=== PATIENT | male | born 1990 | race Caucasian/White ===

== ENCOUNTER 2018-01-04 20:58 | Emergency (ER) | payer OTHER ==
[2018-01-04 21:19] VITALS: BP 132/83
--- NOTE | 2018-01-04 21:34 | UC ---
Hand/Wrist HPI - HPI Summary HPI Summary: 27 yo WM p/w right wrist and forearm pain x2-3 days after working with a sledgehammer at work, hurt his wrist but "kept on working" . Denies trauma or numbness or tingling - History Of Current Complaint Chief Complaint: UCUpperExtremity Stated Complaint: WC-RT WRIST/ARM INJURY Time Seen by Provider: 01/04/18 21:20 Hx Obtained From: Patient Onset/Duration: Lasting Days Severity Initially: Moderate Severity Currently: Moderate Pain Intensity: 0 Character Of Pain: Sharp Aggravating Factor(s): Movement, Flexion, Extension, Abduction, Adduction Alleviating Factor(s): Nothing Associated Signs And Symptoms: Positive: Negative. Negative: Numbness/Tingling - Allergies/Home Medications Allergies/Adverse Reactions: Allergies Allergy/AdvReac Type Severity Reaction Status Date / Time ibuprofen AdvReac epistasis Verified 01/04/18 21:09 Home Medications: Home Medications Ibuprofen TAB* [Advil TAB*] 800 mg PO Q6H PRN 01/04/18 [History Confirmed ] Multivitamin [Multivitamins] 1 cap PO DAILY 01/04/18 [History Confirmed 01/04/18 ] PMH/Surg Hx/FS Hx/Imm Hx Previously Healthy: Yes - Surgical History Surgical History: None - Social History Alcohol Use: Weekly Alcohol Amount: 3 beers Substance Use Type: None Smoking Status (MU): Former Smoker Type: Smokeless Tobacco Amount Used/How Often: daily usage Length of Time of Smoking/Using Tobacco: 7 yrs Have You Smoked in the Last Year: No When Did the Patient Quit Smoking/Using Tobacco: 2 yrs ago - Immunization History Most Recent Influenza Vaccination: no Review of Systems Constitutional: Negative Skin: Negative Eyes: Negative ENT: Negative Respiratory: Negative Cardiovascular: Negative Gastrointestinal: Negative Genitourinary: Negative Motor: Decreased ROM - right wrist, Weakness Neurovascular: Negative Musculoskeletal: Negative Neurological: Negative Psychological: Negative All Other Systems Reviewed And Are Negative: Yes Physical Exam Triage Information Reviewed: Yes Vital Signs: Initial Vital Signs Temp 36.6 C 01/04/18 21:12 Pulse 80 01/04/18 21:12 Resp 16 01/04/18 21:12 BP 132/83 01/04/18 21:12 Pulse Ox 99 01/04/18 21:12 Vital Signs Reviewed: Yes Eye Exam: Normal ENT Exam: Normal ENT: Positive: Normal ENT inspection Neck: Positive: Supple Respiratory Exam: Normal Respiratory: Positive: Lungs clear Musculoskeletal: Positive: Strength Limited @, ROM Limited @ - right wrist- TTP on right dorsal thenar side of the wrist radiating to distal radius, NVI Neurological Exam: Normal Neurological: Positive: Alert Hand/Wrist Course/Dx - Course Course Of Treatment: XR of right wrist and forarm neg for fx- pain likely due to severe strain, will apply thumb spica splint, RICE, work note - Differential Dx/Diagnosis Differential Diagnosis/HQI/PQRI: Sprain, Strain, Tenosynovitis Provider Diagnoses: right wrist strain Discharge - Sign-Out/Discharge Documenting (check all that apply): Discharge/Admit/Transfer - Discharge Plan Condition: Stable Disposition: HOME Prescriptions: Naproxen [Naproxen 500 mg tab] 500 mg PO BID 10 Days #20 tablet Patient Education Materials: Wrist Injury (ED) Forms: *Work Release Referrals: No Primary Care Phys,NOPCP [Primary Care Provider] - Additional Instructions: take medication as directed, thumb spica splint as directed, rest, ICE, elevate - Billing Disposition and Condition Condition: STABLE Disposition: HOME
--- NOTE | 2018-01-04 21:49 | RAD ---
INDICATION: Radial aspect RIGHT wrist pain following repetitive type injury on Monday. COMPARISON: None. TECHNIQUE: AP, lateral, and oblique views RIGHT wrist. AP and lateral views RIGHT forearm. REPORT AND IMPRESSION: Normal articular alignment at the forearm and wrist. Preserved joint spaces. Negative for forearm or wrist cortical disruption or suspicious trabecular irregularity to suggest fracture. Mild distal forearm and wrist soft tissue swelling.
== END 2018-01-04 22:00 | disposition home or self-care (01) ==
LOC: UCCORT 20:58
DX: S66.911A Strain of unspecified muscle, fascia and tendon at wrist and hand level, right hand, initial encounter (principal); X58.XXXA Exposure to other specified factors, initial encounter; Y93.89 Activity, other specified; Y92.9 Unspecified place or not applicable; Z87.891 Personal history of nicotine dependence; Z88.6 Allergy status to analgesic agent
CPT/HCPCS: 99203; G0463

== ENCOUNTER 2018-01-08 21:09 | Emergency (ER) | payer SELFPAY ==
[2018-01-08 21:36] VITALS: BP 147/98
--- NOTE | 2018-01-08 21:59 | UC ---
Hand/Wrist HPI - HPI Summary HPI Summary: PT IS C/O PAIN TO R WRIST FOR 6 DAYS. HE WAS SEEN HERE 4 DAYS AGO AND PRESCRIBED AN NSAID, SPLINT AND OFF WORK. HE NEVER TOOK THE NSAID AND NOTES SOME ONGOING SORENESS. ALSO NOTES THAT SITE SOMETIMES CLICKS. PAIN BEGAN WITH SLEDGE HAMMER USE AND WAS GRADUAL. XRAY ON LAST VISIT=NO FX. NO NUMB/TINGLING TO THE HAND - History Of Current Complaint Hx Obtained From: Patient Onset/Duration: Gradual Onset Pain Intensity: 0 Aggravating Factor(s): Movement Alleviating Factor(s): Rest Associated Signs And Symptoms: Positive: Swelling - IMPROVING. Negative: Redness, Bruising, Fever, Weakness, Numbness/Tingling <Deana Akins - Last Filed: 01/08/18 22:02> <Sruthi Chin - Last Filed: 01/08/18 22:38> - History Of Current Complaint Chief Complaint: UCUpperExtremity Stated Complaint: RECHECK RT WRIST INJURY - W/C Time Seen by Provider: 01/08/18 21:30 - Allergies/Home Medications Allergies/Adverse Reactions: Allergies Allergy/AdvReac Type Severity Reaction Status Date / Time ibuprofen AdvReac epistasis Verified 01/04/18 21:09 PMH/Surg Hx/FS Hx/Imm Hx Previously Healthy: Yes - Surgical History Surgical History: None - Family History Known Family History: Positive: None - Social History Occupation: Employed Full-time Alcohol Use: Weekly Alcohol Amount: 3 beers Substance Use Type: None Smoking Status (MU): Former Smoker Type: Smokeless Tobacco Amount Used/How Often: daily usage Length of Time of Smoking/Using Tobacco: 7 yrs Have You Smoked in the Last Year: No When Did the Patient Quit Smoking/Using Tobacco: 2 yrs ago - Immunization History Most Recent Influenza Vaccination: no Vaccination Up to Date: Yes <Deana Akins - Last Filed: 01/08/18 22:02> Review of Systems Constitutional: Negative Skin: Negative Eyes: Negative ENT: Negative Respiratory: Negative Cardiovascular: Negative Gastrointestinal: Negative Genitourinary: Negative Motor: Negative Neurovascular: Negative Musculoskeletal: Other: - r WRIST PAIN/SWELLING Neurological: Negative Psychological: Negative Is Patient Immunocompromised?: No All Other Systems Reviewed And Are Negative: Yes <Deana Akins - Last Filed: 01/08/18 22:02> Physical Exam Triage Information Reviewed: Yes Appearance: Well-Appearing Vital Signs: Initial Vital Signs Temp 97.6 F 01/08/18 21:31 Pulse 63 01/08/18 21:31 Resp 16 01/08/18 21:31 BP 147/98 01/08/18 21:31 Pulse Ox 100 01/08/18 21:31 Vital Signs Reviewed: Yes Eyes: Positive: Conjunctiva Clear ENT: Positive: Normal ENT inspection Neck: Positive: Supple, Nontender, No Lymphadenopathy Respiratory: Positive: Lungs clear, Normal breath sounds Cardiovascular: Positive: RRR, No Murmur Abdomen Description: Positive: Nontender, No Organomegaly, Soft Bowel Sounds: Positive: Present Musculoskeletal: Positive: Other: - rue: shoulder and elbow are non tender. wrist has mild swelling and tenderness over radial side with + Finklestein test. Hand non tender with full s/v/m function. No snuff box tenderness. Neurological: Positive: Alert Psychological: Positive: Age Appropriate Behavior Skin Exam: Normal <Deana Akins - Last Filed: 01/08/18 22:02> Vital Signs: Initial Vital Signs Temp 97.6 F 01/08/18 21:31 Pulse 63 01/08/18 21:31 Resp 16 01/08/18 21:31 BP 147/98 01/08/18 21:31 Pulse Ox 100 01/08/18 21:31 <Sruthi Chin - Last Filed: 01/08/18 22:38> Hand/Wrist Course/Dx - Course Course Of Treatment: no fx on xray prior visit. pt did not take the nsaid as prescribed on prior visit. no nsaid allergy, had nose bleed in past. no hx briusing or bleeding easliy thus will trial otc nsaid. pt agrees to d/c if any issue. no concern for infection. exam c/w de Quervain tenosynovitis. will resume splinrt and refer to orthopedics. - Differential Dx/Diagnosis Provider Diagnoses: R De Quervain tenosynovitis. <Deana Akins - Last Filed: 01/08/18 22:02> Discharge - Sign-Out/Discharge Documenting (check all that apply): Discharge/Admit/Transfer - Billing Disposition and Condition Condition: STABLE Disposition: HOME <Deana Akins - Last Filed: 01/08/18 22:02> - Billing Disposition and Condition Condition: STABLE Disposition: HOME <Sruthi Chin - Last Filed: 01/08/18 22:38> - Discharge Plan Condition: Stable Disposition: HOME Patient Education Materials: De Quervain Disease (ED) Forms: *Work Release Referrals: Roly Virgen MD [Medical Doctor] - As Soon As Possible Additional Instructions: CONTINUE THE SPLINT. START ALEVE 2 TABLETS(440MG) IN AM AND BEDTIME Attestation Statement Provider Attestation: I was available for consult. This patient was seen by the [facility]. The patient was not presented to, seen by, or examined by me. -Xiomara <Sruthi Chin - Last Filed: 01/08/18 22:38>
== END 2018-01-08 22:08 | disposition home or self-care (01) ==
LOC: UCCORT 21:09
DX: M65.4 Radial styloid tenosynovitis [de Quervain] (principal); Z87.891 Personal history of nicotine dependence
CPT/HCPCS: 99212; G0463

== ENCOUNTER 2018-04-12 13:34 | Emergency (ER) | payer OTHER ==
[2018-04-12 13:54] VITALS: BP 145/94
[2018-04-12] MEDS ORDERED: Albuterol 2.5 MG/3 ML NEB.SOL* (0.083%) INH ONE (13:57)
--- NOTE | 2018-04-12 14:06 | UC ---
Respiratory Complaint HPI - HPI Summary HPI Summary: cough x 4 days cough is productive , yellow sputum + nasal congestion , sore throat, no fever, + chills has been wheezing , chest feels tight, - History of Current Complaint Chief Complaint: UCRespiratory Stated Complaint: UPPER RESPIRATORY COMPLAINT Time Seen by Provider: 04/12/18 13:45 Hx Obtained From: Patient Onset/Duration: Gradual Onset, Lasting Days - 4, Still Present Timing: Constant Severity Initially: Moderate Severity Currently: Moderate Pain Intensity: 5 Character: Cough: Productive Aggravating Factors: Exertion, Deep Breaths Alleviating Factors: Nothing Associated Signs And Symptoms: Positive: Dyspnea, Chills, Wheezing, URI, Nasal Congestion. Negative: Fever, Dizziness, Calf Pain, Calf Swelling - Allergies/Home Medications Allergies/Adverse Reactions: Allergies Allergy/AdvReac Type Severity Reaction Status Date / Time ibuprofen AdvReac epistasis Verified 04/12/18 13:43 Home Medications: Home Medications GuaiFENesin DM* [Robitussin DM*] 10 ml PO Q6H PRN 04/12/18 [History Confirmed ] [place]-3 Fatty Acids/Fish Oil [Fish Oil 1,000 mg Capsule] 1 each PO DAILY [History Confirmed 04/12/18] Oxymetazoline 0.05% NASAL SPR* [Afrin 0.05% NASAL SPRAY*] 1 spray NASAL Q12H PRN 04/12/18 [History Confirmed 04/12/18] PMH/Surg Hx/FS Hx/Imm Hx Respiratory History: Asthma - Surgical History Surgical History: None - Family History Known Family History: Positive: None Negative: Diabetes - Social History Alcohol Use: Weekly Alcohol Amount: 3 beers Substance Use Type: None Smoking Status (MU): Former Smoker Type: Smokeless Tobacco Amount Used/How Often: daily usage Length of Time of Smoking/Using Tobacco: 7 yrs Have You Smoked in the Last Year: No When Did the Patient Quit Smoking/Using Tobacco: 2 yrs ago - Immunization History Most Recent Influenza Vaccination: no Vaccination Up to Date: Yes Review of Systems Constitutional: Chills, Fatigue Skin: Negative Eyes: Negative ENT: Sore Throat, Nasal Discharge Respiratory: Shortness Of Breath, Cough Cardiovascular: Negative Is Patient Immunocompromised?: No All Other Systems Reviewed And Are Negative: Yes Physical Exam Triage Information Reviewed: Yes Appearance: Well-Appearing, No Pain Distress, Well-Nourished Vital Signs: Initial Vital Signs Temp 97.5 F 04/12/18 13:46 Pulse 118 04/12/18 13:46 Resp 24 04/12/18 13:46 BP 145/94 04/12/18 13:46 Pulse Ox 94 04/12/18 13:46 Vital Signs Reviewed: Yes Eye Exam: Normal Eyes: Positive: Conjunctiva Clear ENT: Positive: Normal ENT inspection, Hearing grossly normal, Pharynx normal, Nasal congestion, Nasal drainage, TMs normal Neck: Positive: Supple, Nontender, No Lymphadenopathy Respiratory: Positive: Chest non-tender, Wheezing - diffuse Cardiovascular: Positive: Tachycardia Abdominal Exam: Normal Skin Exam: Normal UC Diagnostic Evaluation - Laboratory O2 Sat by Pulse Oximetry: 94 Diagnostic Studies Comment: chest xray : no acute disease Respiratory Course/Dx - Differential Dx/Diagnosis Provider Diagnoses: Bronchitis Discharge - Sign-Out/Discharge Documenting (check all that apply): Patient Departure - Discharge Plan Condition: Stable Disposition: HOME Prescriptions: Albuterol 2.5MG/3ML (0.083%)* [Ventolin 2.5 MG/3 ML NEB.LOVELY*] 2.5 mg INH Q6H PRN #1 box PRN Reason: Wheezing Albuterol HFA INHALER* [Ventolin HFA Inhaler*] 2 puff INH Q4H PRN #1 mdi PRN Reason: Wheezing Azithromycin TAB* [Zithromax TAB (Z-RAMAKRISHNA) 250 mg #6 tabs] 2 tab PO .TODAY, THEN 1 DAILY #1 ramakrishna predniSONE [Prednisone 20 MG TAB] 20 mg PO BID #10 tablet Patient Education Materials: Acute Bronchitis (ED) Referrals: No Primary Care Phys,NOPCP [Primary Care Provider] - 5 Days - Billing Disposition and Condition Condition: STABLE Disposition: Home
--- NOTE | 2018-04-12 14:37 | RAD ---
INDICATION: Cough and shortness of breath for 3 days. History of asthma. COMPARISON: No relevant prior exams available on the [facility] PACS for comparison. TECHNIQUE: Dual energy PA and routine lateral views of the chest were obtained. REPORT: Elevated lung volumes. Clear lungs and pleural spaces. Negative for pneumothorax. The heart, pulmonary vasculature, and mediastinal contours are unremarkable. Unremarkable osseous structures and soft tissue contours. IMPRESSION: #. Elevated lung volumes suggesting potential obstructive lung disease corresponding with history of asthma. #. No evidence for pneumonia or other acute cardiopulmonary process.
== END 2018-04-12 14:26 | disposition home or self-care (01) ==
LOC: UCCORT 13:34
DX: J40 Bronchitis, not specified as acute or chronic (principal); R94.2 Abnormal results of pulmonary function studies; Z87.891 Personal history of nicotine dependence; Z88.6 Allergy status to analgesic agent
CPT/HCPCS: 71046; 99212; G0463

== ENCOUNTER 2018-08-06 16:06 | Emergency (ER) | payer OTHER ==
--- NOTE | 2018-08-06 16:35 | UC ---
Respiratory Complaint HPI - HPI Summary HPI Summary: 27 year old male presents with 4 day history of progressively worsening URI symptoms with harsh cough. States initially started with nasal congestion, sinus pressure, sore throat, and bilateral ear fullness then over last 2 days has developed progressively worsening productive cough. Associated with mild SOB and wheezing. States no history of asthma however has had reactive airway disease with URIs in the past. Has used his albuterol inhaler a couple times. Last used yesterday morning. Denies fever, chills, chest pain, abdominal pain, nausea, vomiting, or diarrhea. - History of Current Complaint Chief Complaint: UCRespiratory Stated Complaint: COUGH,SINUS COMPLAINT Time Seen by Provider: 08/06/18 16:20 Hx Obtained From: Patient Onset/Duration: Gradual Onset, Lasting Days - 4 Pain Intensity: 8 Aggravating Factors: Nothing Alleviating Factors: Bronchodilator Associated Signs And Symptoms: Positive: Dyspnea, Wheezing, URI, Nasal Congestion, Sinus Discomfort. Negative: Fever, Chills, Pleuritic Chest Pain, Hemoptysis, Hoarseness - Allergies/Home Medications Allergies/Adverse Reactions: Allergies Allergy/AdvReac Type Severity Reaction Status Date / Time ibuprofen AdvReac epistasis Verified 08/06/18 16:23 PMH/Surg Hx/FS Hx/Imm Hx Previously Healthy: Yes - Denies significant PMH - Surgical History Surgical History: None - Family History Known Family History: Positive: Non-Contributory - Social History Occupation: Employed Full-time Alcohol Use: Weekly Alcohol Amount: 3 beers Substance Use Type: None Smoking Status (MU): Former Smoker Type: Smokeless Tobacco Amount Used/How Often: daily usage Length of Time of Smoking/Using Tobacco: 7 yrs Have You Smoked in the Last Year: No When Did the Patient Quit Smoking/Using Tobacco: 2 yrs ago - Immunization History Most Recent Influenza Vaccination: no Vaccination Up to Date: Yes Review of Systems All Other Systems Reviewed And Are Negative: Yes Constitutional: Negative: Fever, Chills Skin: Negative: Rash Eyes: Negative: Drainage, Eye Redness ENT: Positive: Sore Throat, Nasal Discharge, Sinus Congestion, Sinus Pain/ Tenderness Respiratory: Positive: Shortness Of Breath, Cough, Other - Wheezing Cardiovascular: Negative: Palpitations, Chest Pain Gastrointestinal: Negative: Abdominal Pain, Vomiting, Diarrhea, Nausea Is Patient Immunocompromised?: No Physical Exam - Summary Physical Exam Summary: GENERAL APPEARANCE: Well developed, well nourished, alert and cooperative, and appears to be in no acute distress. HEAD: Atraumatic. normocephalic. EYES: Conjunctiva clear. No discharge. EARS: External auditory canals and tympanic membranes clear, hearing grossly intact. NOSE: Nasal congestion. Maxillary sinus tenderness. THROAT: Oral cavity normal. Teeth and gingiva in good general condition. Mild pharyngeal erythema with cobblestoning. No tonsilar inflammation, swelling, or exudate. NECK: Neck supple, non-tender without lymphadenopathy. CARDIAC: Normal S1 and S2. No S3, S4 or murmurs. Rhythm is regular. There is no peripheral edema, cyanosis or pallor. Extremities are warm and well perfused. Capillary refill is less than 2 seconds. LUNGS: Diffuse bilateral wheezes. No rales or rhonchi noted. Nonproductive cough. ABDOMEN: Positive bowel sounds. Soft, nondistended, nontender. No guarding or rebound. No masses or hepatosplenomegally. MUSKULOSKELETAL: Normal muscular development. EXTREMITIES: No edema. Peripheral pulses intact. SKIN: Skin normal color, texture and turgor with no lesions or eruptions. Triage Information Reviewed: Yes Vital Signs: Initial Vital Signs Temp 98 F 08/06/18 16:21 Pulse 90 08/06/18 16:21 Resp 18 08/06/18 16:21 BP 155/88 08/06/18 16:21 Pulse Ox 99 08/06/18 16:21 Vital Signs Reviewed: Yes UC Diagnostic Evaluation - Laboratory O2 Sat by Pulse Oximetry: 99 Re-Evaluation - Re-Evaluation First Eval Re-Evaluation Time: 17:15 Change: Improved Comment: Post-nebulizer treatment patient reports breathing easier. No wheezing with good air exchange. Mild rhonchi noted LLL. Respiratory Course/Dx - Course Course Of Treatment: 27 year old male presents with 4 day history of progressively worsening URI symptoms with harsh cough. States initially started with nasal congestion, sinus pressure, sore throat, and bilateral ear fullness then over last 2 days has developed progressively worsening productive cough. Associated with mild SOB and wheezing. States no history of asthma however has had reactive airway disease with URIs in the past. Has used his albuterol inhaler a couple times. Last used yesterday morning. Denies fever, chills, chest pain, abdominal pain, nausea, vomiting, or diarrhea. Afebrile. VSS. Exam revealed some nasal congestion with maxillary sinus tenderness and diffuse bilateral wheezing. Patient was given albuterol nebulizer with good improvement of the wheezing although continued to have some rhonchi in the LLL. Will treat for URI with cough with course of azithromycin, prednisone 40 mg daily x 5 days , and an albuterol inhaler PRN. With the wheeizng and rhonchi will have patient follow up with the [facility] for recheck of symptoms within 5 days since he does not have a PCP. Warning symptoms were reviewed with patient. Verbalizes understanding and agrees with POC. - Differential Dx/Diagnosis Differential Diagnosis/HQI/PQRI: Asthma, Bronchitis, Influenza, Lower Resp Infection, Sinusitis Provider Diagnosis: Upper respiratory infection with cough and congestion, Wheezing Discharge - Sign-Out/Discharge Documenting (check all that apply): Patient Departure All imaging exams completed and their final reports reviewed: No Studies - Discharge Plan Condition: Stable Disposition: HOME Prescriptions: Albuterol HFA INHALER* [Ventolin HFA Inhaler*] 2 puff INH Q4H PRN #1 mdi PRN Reason: Sob/Wheezing Azithromyxin RAMAKRISHNA (NF) [Z-Ramakrishna (Zithromax) 250 mg tabs #6] 2 tab PO .TODAY, THEN 1 DAILY #6 tab Fluticasone NASAL SPRAY 50MCG* [Flonase NASAL SPRAY 50MCG*] 2 spray BOTH NARES DAILY #1 btl predniSONE TAB* [Deltasone 20 MG TAB*] 40 mg PO DAILY #10 tab Patient Education Materials: Upper Respiratory Infection (ED), Wheezing (ED) Forms: *Work Release Referrals: No Primary Care Phys,NOPCP [Primary Care Provider] - [facility] [Outside] Additional Instructions: Your history and exam are consistent with a upper respiratory infection. With the worsening of symptoms and wheezing we will start you on an antibiotic to treat for the infection. Take azithromycin 2 tabs today then 1 tab a day for next 4 days. I am starting you on a steroid called prednisone to help with the inflammation in your airways which is causing the wheezing. Take prednisone 40 mg (2 tabs) once a day for 5 days. You were given an albuterol nebulizer treatment in the clinic with good improvement in your wheezing. Use albuterol inhaler 2 puffs every 4-6 hours as needed for shortness of breath, wheezing, or coughing fits. Drink plenty of fluids to avoid dehydration especially if you are running any fever. Use a saline rinse kit such as Neti Pot or NeilMed at least twice a day to help thin secretions and promote drainage of the sinuses. Use fluticasone (Flonase) nasal spray 2 sprays each nostril once daily. Take over the counter acetaminophen (Tylenol) or ibuprofen (Advil, Motrin) according to directions as needed for pain or fever. Use salt water gargles several times a day if you have a sore throat. You may also use Chloraseptic spray or Cepacol lonzenges according to directions which contain a numbing medication and can provide some temporary relief from your sore throat. Follow up with the [facility] within 5 days for recheck of symptoms. Call tomorrow for appointment. Seek immediate medical attention in the emergency room if you have fever greater than 100.5 F despite taking acetaminophen or ibuprofen, have chest pain , difficulty breathing, or have any worsening of symptoms. - Billing Disposition and Condition Condition: STABLE Disposition: Home
[2018-08-06] MEDS ORDERED: Albuterol 2.5 MG/3 ML NEB.SOL* (0.083%) INH ONE (16:39)
[2018-08-06 17:20] VITALS: BP 139/79
== END 2018-08-06 17:32 | disposition home or self-care (01) ==
LOC: UCCORT 16:06
DX: J06.9 Acute upper respiratory infection, unspecified (principal); R05 Cough; R09.81 Nasal congestion; Z88.6 Allergy status to analgesic agent; J45.909 Unspecified asthma, uncomplicated; Z87.891 Personal history of nicotine dependence
CPT/HCPCS: 99212; G0463

== ENCOUNTER 2019-06-25 07:17 | Emergency (ER) | payer SELFPAY ==
[2019-06-25] MEDS ORDERED: Albuterol/Ipratropium NEB.SOL* Albuterol 2.5 MG/Ipratropium 0.5 MG 3 ML INH ONE ×2 (07:19→07:48)
--- NOTE | 2019-06-25 07:31 | UC ---
Respiratory Complaint HPI - HPI Summary HPI Summary: Patient presents to urgent care for evaluation of shortness of breath. Patient states he had a head cold for 2 days. Patient states he woke this point at 5: 00 with wheezing and short of breath. Patient states he took some [place] cold without improvement. Patient does have history of wheezing in the past with his usually he has a cold with illness chest before happens. Patient denies fevers or chills. Patient is vomiting. No pain anyplace. Patient does smoke cigars. He doesn't sleep to rule out. Patient's medications review of this visit. - History of Current Complaint Chief Complaint: UCRespiratory Stated Complaint: TROUBLE BREATHING Time Seen by Provider: 06/25/19 07:19 Hx Obtained From: Patient Onset/Duration: Gradual Onset, Lasting Hours Severity Initially: Mild Severity Currently: Moderate Pain Intensity: 0 - Allergies/Home Medications Allergies/Adverse Reactions: Allergies Allergy/AdvReac Type Severity Reaction Status Date / Time ibuprofen AdvReac epistasis Verified 06/25/19 07:23 Home Medications: Home Medications Loratadine [Claritin 10 MG CAP] 1 tab PO DAILY 06/25/19 [History Confirmed 06/25] PMH/Surg Hx/FS Hx/Imm Hx Previously Healthy: Yes Respiratory History: Other - Reactive airway disease - Surgical History Surgical History: None - Family History Known Family History: Positive: None, Non-Contributory Negative: Diabetes - Social History Alcohol Use: Weekly Alcohol Amount: 3 beers Substance Use Type: None Smoking Status (MU): Current Some Day Smoker Type: eCigarettes, Smokeless Tobacco Amount Used/How Often: daily usage Length of Time of Smoking/Using Tobacco: 7 yrs Have You Smoked in the Last Year: No When Did the Patient Quit Smoking/Using Tobacco: 2 yrs ago - Immunization History Most Recent Influenza Vaccination: no Vaccination Up to Date: Yes Review of Systems All Other Systems Reviewed And Are Negative: Yes Constitutional: Positive: Negative Skin: Positive: Negative Eyes: Positive: Negative ENT: Positive: Ear Ache, Nasal Discharge, Sinus Congestion, Sinus Pain/ Tenderness Respiratory: Positive: Shortness Of Breath, Cough, Other Cardiovascular: Positive: Negative Physical Exam - Summary Physical Exam Summary: Vital Signs Reviewed: Yes A+Ox3, no distress Eyes: Conjunctiva Clear, GIA. EOM intact and full ENT: Hearing grossly normal TM x 2 clear, turbinates inflammed and boggy, + PND , mmoist, uvula midline, no exudate, no erythema Neck: Positive: Supple Respiratory: Positive: Patient with increased work of breathing. Patient with retractions. Patient with audible wheeze, distance. Patient speaking 2-3 word sentences. Cardiovascular: RRR nl s1, s2 no m/r CBT <2 sec abd soft + BS nt/nd no guarding, no distension Musculoskeletal Exam: ARMIJO x 4 without difficulty Strength Intact, ROM Intact Neurological: Positive: Alert, + sensation throughout Psychological: Positive: Normal Response To examiner Skin: Positive: no rash, no ecchymosis Triage Information Reviewed: Yes Vital Signs: Initial Vital Signs Temp 97.5 F 06/25/19 07:20 Pulse 99 06/25/19 07:20 Resp 22 06/25/19 07:20 BP 171/82 06/25/19 07:20 Pulse Ox 95 06/25/19 07:20 Re-Evaluation - Re-Evaluation First Eval Re-Evaluation Time: 07:41 Change: Improved - Markedly improved following the first neb. Patient speaking easy, pulse rate 60 feels better. No audible wheeze with speech. Pt continues with exp wheeze diffuse and continues with cough. Will give pred, cxr and 2nd neb reviewed pred precautions with pt Second Eval Re-Evaluation Time: 08:41 Comment: Pt states feels "so much better". VS improved. continues with mild, scattered wheeze. will discharge with MDI, prednisone, abx. secretion precaution. physician referral center. strict return precautions. decrease e cig. pt in agreement Respiratory Course/Dx - Course Course Of Treatment: Patient presents to urgent care stating he's had a cold for the last 3-4 days. Patient states over the last 2 hours he's had progressive increasing shortness of breath and wheezing. Patient states he can't take a shower seem to make it worse. Patient with a history of wheezing in the past but states usually the cold certain his chest. Patient with mild intermittent coughing. Nonproductive. Patient has undergone the flu shot. Patient does not smoke but does use a [place]ana [place] daily. On exam patient with increased work of breathing and audible wheezing with speaking wanted to sentences. We'll give patient DuoNeb close reassessment and reassess. Anticipate will likely get a chest x- ray incredible like to see if patient improves following first treatment. Patient states understanding of plan. - Differential Dx/Diagnosis Provider Diagnosis: Acute bronchitis Discharge ED - Sign-Out/Discharge Documenting (check all that apply): Patient Departure All imaging exams completed and their final reports reviewed: Yes - Discharge Plan Condition: Stable Disposition: HOME Patient Education Materials: Acute Bronchitis (ED) Forms: *Work Release Referrals: [facility] [place] [facility]ERR[facility] [Outside] Additional Instructions: - Use your albuterol puffer - 2 puffs ever 4 hours for the next 2 days - then as needed - Take prednisone daily as prescribed - starting tommorrow - Take antibiotics 2 times a day as prescribed -Stay well hydrated - avoid excess caffeine and all alcohol - eat regular, healthy meals - work to decrease cigarette smoke -These infections are spread by oral secretions. Do not share eating or drinking utensils. Frequent hand washing is important. Clean items that may get your secretions on them such as cell phones, ipads, computer mouse, television remotes. Once you have been on antbiotics for 2 days, change your pillowcase and your toothbrush -Contact the physician referral center for assistance getting a new primary care provider - call today. If you have increased shortness of breath, pain, uncontrolled fevers it is recommended you contact 911 or go to the emergency department for further evaluation and treatment - Billing Disposition and Condition Condition: STABLE Disposition: Home
[2019-06-25] MEDS ORDERED: predniSONE TAB* 20 MG PO ONE (07:48)
[2019-06-25 08:21] VITALS: BP 153/88
== END 2019-06-25 08:55 | disposition home or self-care (01) ==
LOC: UCCORT 07:17
DX: J20.9 Acute bronchitis, unspecified (principal); J45.909 Unspecified asthma, uncomplicated; H92.09 Otalgia, unspecified ear; R09.89 Other specified symptoms and signs involving the circulatory and respiratory systems; R09.81 Nasal congestion; F17.290 Nicotine dependence, other tobacco product, uncomplicated; Z88.8 Allergy status to other drugs, medicaments and biological substances
CPT/HCPCS: 71046; 99213; A9270-GY; G0463; J7512

== ENCOUNTER 2019-07-13 11:58 | Emergency (ER) | payer OTHER ==
[2019-07-13 12:20] VITALS: BP 152/94
[2019-07-13] MEDS ORDERED: Albuterol 2.5 MG/3 ML NEB.SOL* (0.083%) INH ONE (12:44)
--- NOTE | 2019-07-13 12:51 | UC ---
Respiratory Complaint HPI - HPI Summary HPI Summary: SEEN HERE 06/25/19 WITH SHORTNESS OF BREATH, WHEEZE. TREATED FOR ACUTE BRONCHITIS WITH AUGMENTIN, PREDNISONE AND ALBUTEROL INHALER. PATIENT STATES HE IS FEELING MUCH BETTER BUT THE COLD WEATHER STILL MAKES HIS AIRWAYS TIGHT. RAN OUT OF ALBUTEROL TODAY AND IS REQUESTING REFILL. - History of Current Complaint Chief Complaint: UCRespiratory Stated Complaint: SORE THROAT Time Seen by Provider: 07/13/19 12:32 Hx Obtained From: Patient Severity Initially: Moderate Severity Currently: Moderate Pain Intensity: 0 Pain Scale Used: 0-10 Numeric Character: Cough: Nonproductive Aggravating Factors: Other - COLD AIR Alleviating Factors: Bronchodilator Associated Signs And Symptoms: Positive: Negative - Allergies/Home Medications Allergies/Adverse Reactions: Allergies Allergy/AdvReac Type Severity Reaction Status Date / Time ibuprofen AdvReac epistasis Verified 07/13/19 12:19 PMH/Surg Hx/FS Hx/Imm Hx Respiratory History: COPD, Asthma - Surgical History Surgical History: None - Family History Known Family History: Positive: None, Non-Contributory Negative: Diabetes - Social History Alcohol Use: Occasionally Alcohol Amount: 3 beers Substance Use Type: None Smoking Status (MU): Current Some Day Smoker Type: eCigarettes, Smokeless Tobacco Amount Used/How Often: daily usage Length of Time of Smoking/Using Tobacco: 7 yrs Have You Smoked in the Last Year: No When Did the Patient Quit Smoking/Using Tobacco: 2 yrs ago - Immunization History Most Recent Influenza Vaccination: no Vaccination Up to Date: Yes Review of Systems All Other Systems Reviewed And Are Negative: Yes Constitutional: Positive: Negative Respiratory: Positive: Cough Cardiovascular: Positive: Negative Gastrointestinal: Positive: Negative Physical Exam Triage Information Reviewed: Yes Appearance: Well-Appearing, No Pain Distress, Well-Nourished Vital Signs: Initial Vital Signs Temp 98.0 F 07/13/19 12:17 Pulse 89 07/13/19 12:17 Resp 18 07/13/19 12:17 BP 152/94 07/13/19 12:17 Pulse Ox 97 07/13/19 12:17 Vital Signs Reviewed: Yes Eyes: Positive: Conjunctiva Clear ENT: Positive: Hearing grossly normal Neck: Positive: Supple Respiratory: Positive: Decreased breath sounds, Wheezing - DIFFUSE Cardiovascular Exam: Normal Abdomen Description: Positive: Soft Musculoskeletal: Positive: No Edema Neurological: Positive: Alert Psychological: Positive: Age Appropriate Behavior Skin: Negative: Rashes Re-Evaluation - Re-Evaluation First Eval Re-Evaluation Time: 13:05 - LUNGS CLEARER, MOVING MORE AIR, PT FEELING BETTER AFTER ALB NEB Change: Improved Respiratory Course/Dx - Course Course Of Treatment: PATIENT SOUNDED AND FELT MUCH BETTER AFTER ALBUTEROL NEBULIZER HERE IN THE . ALBUTEROL INHALER REFILLS. ENCOURAGED PATIENT TO FOLLOW UP WITH HIS PRIMARY CARE PHYSICIAN TO DISCUSS HIS BRONCHOSPASM/ASTHMA. IF HE IS NEEDING TO USE HIS ALBUTEROL ON A REGULAR BASIS HE MAY BENEFIT FROM A DAILY ASTHMA MAINTENANCE MEDICATION. - Differential Dx/Diagnosis Provider Diagnosis: Bronchospasm Discharge ED - Sign-Out/Discharge Documenting (check all that apply): Patient Departure All imaging exams completed and their final reports reviewed: No Studies - Discharge Plan Condition: Stable Disposition: HOME Prescriptions: Albuterol HFA INHALER* [Ventolin HFA Inhaler*] 2 puff INH Q4H PRN #1 mdi PRN Reason: Shortness Of Breath predniSONE TAB* [Deltasone TAB*] 50 mg PO DAILY #5 tab Patient Education Materials: Bronchospasm (ED) Referrals: No Primary Care Phys,NOPCP [Primary Care Provider] - Additional Instructions: FOLLOW-UP WITH YOUR PCP IN A COUPLE OF WEEKS DISCUSSED. IF YOU'RE NEEDING YOUR RESCUE ALBUTEROL INHALER ON A DAILY BASIS YOU MAY BENEFIT FROM AN ASTHMA MAINTENANCE MEDICATION. - Billing Disposition and Condition Condition: STABLE Disposition: Home
== END 2019-07-13 13:18 | disposition home or self-care (01) ==
LOC: UCCORT 11:58
DX: J44.9 Chronic obstructive pulmonary disease, unspecified (principal); F17.290 Nicotine dependence, other tobacco product, uncomplicated; Z88.6 Allergy status to analgesic agent
CPT/HCPCS: 99212; G0463

== ENCOUNTER 2019-08-20 09:55 | Emergency (ER) | payer OTHER ==
[2019-08-20] MEDS ORDERED: Albuterol 2.5 MG/3 ML NEB.SOL* (0.083%) INH ONE (10:13)
--- NOTE | 2019-08-20 10:37 | UC ---
Respiratory Complaint HPI - HPI Summary HPI Summary: sob / wheezing x 1 day symptoms are moderate 6 out 10 , difficulty taking a deep breath, throat feels swollen , started last night, getting worse this morning denies any cold symptoms, no fever, + dry cough - History of Current Complaint Chief Complaint: UCGeneralIllness Stated Complaint: ASTHMA Time Seen by Provider: 08/20/19 10:09 Hx Obtained From: Patient Onset/Duration: Gradual Onset, Lasting Days - 1, Still Present Severity Initially: Moderate Severity Currently: Moderate Pain Intensity: 0 Character: Cough: Nonproductive Aggravating Factors: Exertion, Deep Breaths Alleviating Factors: Nothing Associated Signs And Symptoms: Positive: Dyspnea, Wheezing. Negative: Fever, Chills, Pleuritic Chest Pain, Hemoptysis, URI, Nasal Congestion, Hoarseness, Sinus Discomfort - Allergies/Home Medications Allergies/Adverse Reactions: Allergies Allergy/AdvReac Type Severity Reaction Status Date / Time ibuprofen AdvReac epistasis Verified 08/20/19 10:00 PMH/Surg Hx/FS Hx/Imm Hx Respiratory History: Asthma - Surgical History Surgical History: None - Family History Known Family History: Positive: None, Non-Contributory Negative: Diabetes - Social History Alcohol Use: Occasionally Alcohol Amount: 3 beers Substance Use Type: Marijuana Smoking Status (MU): Current Some Day Smoker Type: eCigarettes, Smokeless Tobacco Amount Used/How Often: daily usage Length of Time of Smoking/Using Tobacco: 7 yrs Have You Smoked in the Last Year: No When Did the Patient Quit Smoking/Using Tobacco: 2 yrs ago - Immunization History Most Recent Influenza Vaccination: no Vaccination Up to Date: Yes Review of Systems All Other Systems Reviewed And Are Negative: Yes Constitutional: Positive: Negative Skin: Positive: Negative Eyes: Positive: Negative ENT: Positive: Negative Respiratory: Positive: Shortness Of Breath, Cough Is Patient Immunocompromised?: No Physical Exam Triage Information Reviewed: Yes Appearance: Pain Distress, Obese Vital Signs: Initial Vital Signs Temp 98.1 F 08/20/19 09:56 Pulse 116 08/20/19 09:56 Resp 20 08/20/19 09:56 BP 190/106 08/20/19 09:56 Pulse Ox 96 08/20/19 09:56 Vital Signs Reviewed: Yes Eyes: Positive: Conjunctiva Clear ENT: Positive: Normal ENT inspection, Hearing grossly normal, Pharynx normal, TMs normal Neck: Positive: Supple, Nontender, No Lymphadenopathy Respiratory: Positive: No respiratory distress, No accessory muscle use, Wheezing. Negative: Crackles, Rhonchi Cardiovascular: Positive: Tachycardia Abdominal Exam: Normal Abdomen Description: Positive: Nontender, Soft Bowel Sounds: Positive: Present Respiratory Course/Dx - Differential Dx/Diagnosis Provider Diagnosis: SOB (shortness of breath), Asthma exacerbation Discharge ED - Sign-Out/Discharge Documenting (check all that apply): Patient Departure All imaging exams completed and their final reports reviewed: No Studies - Discharge Plan Condition: Stable Disposition: HOME Prescriptions: Albuterol 2.5MG/3ML (0.083%)* [Ventolin 2.5 MG/3 ML NEB.LOVELY*] 2.5 mg INH Q6H PRN #1 neb.lovely PRN Reason: Wheezing Albuterol HFA INHALER* [Ventolin HFA Inhaler*] 2 puff INH Q6H PRN #1 mdi PRN Reason: Wheezing predniSONE TAB* [Deltasone 20 MG TAB*] 40 mg PO DAILY #10 tab Patient Education Materials: Asthma (DC) Referrals: No Primary Care Phys,NOPCP [Primary Care Provider] - 7 Days - Billing Disposition and Condition Condition: STABLE Disposition: Home
[2019-08-20 10:43] VITALS: BP 153/91
== END 2019-08-20 10:43 | disposition home or self-care (01) ==
LOC: UCCORT 09:55
DX: J45.901 Unspecified asthma with (acute) exacerbation (principal); R06.02 Shortness of breath; F17.290 Nicotine dependence, other tobacco product, uncomplicated; Z88.6 Allergy status to analgesic agent
CPT/HCPCS: 93005; 99212; G0463

== ENCOUNTER 2019-12-03 08:28 | Emergency (ER) | payer OTHER ==
--- NOTE | 2019-12-03 08:56 | UC ---
[facility] HPI HPI Summary: 28-year-old male is here for a telehealth visit with a chief complaint of asthma symptoms. Patient reports he ran out of his albuterol inhaler about a week ago. He recently just started having some shortness of breath that relates is his asthma. Said usually if he takes some albuterol that shortness of breath ago right away. Denies any fevers or chills or sputum production or signs of infection. Patient agreed with telehealth visit. Telehealth PMH Previously Healthy: Yes Respiratory History: Reports: Hx Asthma Infectious Disease History: No - Family History Known Family History: Positive: None, Non-Contributory Negative: Diabetes - Social History Alcohol Use: Occasionally Alcohol Amount: 3 beers Substance Use Type: Reports: None Smoking Status (MU): Former Smoker Type: eCigarettes, Smokeless Tobacco Amount Used/How Often: daily usage Length of Time of Smoking/Using Tobacco: 7 yrs Have You Smoked in the Last Year: No [facility] Telehealth ROS All Other Systems Reviewed And Are Negative: Yes Positive: Other - SEE HPI Eyes: Negative ENT: Negative Cardiovascular: Negative Positive: Shortness Of Breath, Other - SEE HPI Skin: Negative Neurological/Mental Status: Negative Psychological: Normal [facility] PE Telehealth Physical Exam: To decrease the risk of transmission of medical diseases this was a telemedicine visit which does limit the physical examination. Appearance: Positive: Well-Appearing, Alert and Oriented, Well-Nourished Skin: Positive: Skin Color Reflects Adequate Perfusion Eyes: Positive: Normal ENT: Negative: Nasal congestion, Hoarse voice Neck: Positive: Supple Respiratory/Lung Sounds: Positive: Normal Respiratory Effort Cardiovascular: Positive: Skin Color Reflects Adequate Perfusion Musculoskeletal: Positive: Normal Tone Neurological: Positive: Alert, Oriented to Person Place, Time Psychiatric: Positive: Normal [facility] Course/Dx Assessment/Plan: Sent a prescription for both albuterol inhaler and also albuterol nebulizer. Provider Diagnoses: Asthma Telehealth Disposition Provider Recommendation for Treatment: [facility] Telehealth Visit: Patient Consented Verbally to Telehealth Visit Telehealth Patient Statement: The patient should understand that they are communicating with their provider via a secure communication platform and that all the same privacy and confidentiality rules apply. They will also be responsible for copayments or coinsurances that apply to any Telehealth visit. Patient Identifiers: 2 Patient Identifiers Verified for Telehealth Visit Telehealth Visit Start Time: 08:45 Telehealth Visit End Time: 09:00 Telehealth Provider Attestation: The above services were appropriate to provide in a Telehealth setting.
== END 2019-12-03 09:00 | disposition home or self-care (01) ==
LOC: UCCORT 08:28
DX: J45.909 Unspecified asthma, uncomplicated (principal); Z76.0 Encounter for issue of repeat prescription; Z87.891 Personal history of nicotine dependence
CPT/HCPCS: 99211; G0463; Q3014